=== PATIENT | female | born 1960 ===

== ENCOUNTER 2021-10-07 01:38 | Day surgery (SDC) | payer MEDICARE, BC ==
[2021-10-07 14:17] LABS: BASOPHILS ABSOLUTE AUTO 0.03 K/mm3 (0.00-0.23); BASOPHILS PERCENT AUTO 0 % (0-2); EOSINOPHILS ABSOLUTE AUTO 0.18 K/mm3 (0.00-0.68); EOSINOPHILS PERCENT AUTO 2 % (0-6); Hematocrit 36.4 % (33.0-51.0); Hemoglobin 12.3 g/dL (11.5-16.0); IMMATURE GRAN ABSOLUTE AUTO 0.03 K/mm3 (0.00-0.10); IMMATURE GRAN PERCENT AUTO 0 % (0-1); LYMPHOCYTES ABSOLUTE AUTO 1.72 K/mm3 (0.84-5.20); LYMPHOCYTES PERCENT AUTO 21 % (21-46); MONOCYTES ABSOLUTE AUTO 0.59 K/mm3 (0.16-1.47); MONOCYTES PERCENT AUTO 7 % (4-13); Mean Corpuscular HGB 32.4 pg (26.0-34.0); Mean Corpuscular HGB Conc 33.8 g/dL (31.5-36.5); Mean Corpuscular Volume 96 fL (80-100); Mean Platelet Volume 9.9 fL (9.1-12.4); NEUTROPHILS ABSOLUTE AUTO 5.67 K/mm3 (1.96-9.15); NEUTROPHILS PERCENT AUTO 69 % (41-73); Platelet Count 265 K/mm3 (150-400); RDW Standard Deviation 45.7 fL (35.1-46.3); White Blood Cell Count 8.22 K/mm3 (4.00-11.30)
[2021-10-07 14:33] LABS: Albumin, Blood 3.4 g/dL (3.4-5.0); Bilirubin, Total 0.3 mg/dL (0.1-1.0); Calcium, Blood 8.5 mg/dL (8.5-10.1); Creatinine, Blood 0.78 mg/dL (0.40-1.00); Globulin, Blood 3.5 g/dL (2.2-4.0); Potassium, Blood 3.7 mmol/L (3.5-5.5); Total Protein, Blood 6.9 g/dL (6.4-8.2)
[2021-10-07] MEDS ORDERED: ESTR2 PO (14:51)
[2021-10-07] MEDS ORDERED: ESZO3 PO (14:52)
[2021-10-07] MEDS ORDERED: HYDSUL200 PO (14:52)
[2021-10-07] MEDS ORDERED: LOSARTAN POTAS100 M1 PO (14:53)
[2021-10-07] MEDS ORDERED: LEVSOD75 PO (14:53)
[2021-10-07] MEDS ORDERED: Hair, Skin & N1 EACH PO ×2 (14:54→14:56)
[2021-10-07] MEDS ORDERED: TIZA4 PO (14:57)
[2021-10-07] MEDS ORDERED: TRAM50 PO (14:57)
[2021-10-07] MEDS ORDERED: VITAMIN D5000 UNIT PO (14:58)
== END 2021-10-07 16:50 | disposition home or self-care (01) ==
LOC: ATC 01:38
PROVIDERS: Internal Medicine Rheumatology
DX: M45.0 Ankylosing spondylitis of multiple sites in spine (principal); M35.09 Sjogren syndrome with other organ involvement; I73.00 Raynaud's syndrome without gangrene; Z79.899 Other long term (current) drug therapy; R21 Rash and other nonspecific skin eruption
CPT/HCPCS: 80053; 85025; 96413; 96415; J2920; J7050; Q5103

== ENCOUNTER 2021-10-20 00:36 | Day surgery (SDC) | payer MEDICARE, BC ==
[~2021-10-20] VITALS: Wt 74.6 kg
[~2021-10-20 00:36] MED LIST: ESTR2 PO; ESZO3 PO; HYDSUL200 PO; Hair, Skin & N1 EACH PO; LEVSOD75 PO; LOSARTAN POTAS100 M1 PO; TIZA4 PO; TRAM50 PO; VITAMIN D5000 UNIT PO
== END 2021-10-20 16:34 | disposition home or self-care (01) ==
LOC: ATC 00:36
DX: M45.0 Ankylosing spondylitis of multiple sites in spine (principal); I10 Essential (primary) hypertension; E03.9 Hypothyroidism, unspecified; M13.10 Monoarthritis, not elsewhere classified, unspecified site; M35.09 Sjogren syndrome with other organ involvement; I73.00 Raynaud's syndrome without gangrene; Z79.899 Other long term (current) drug therapy
CPT/HCPCS: 96375; 96413; 96415; J2920; J7050; Q5103

== ENCOUNTER 2021-11-17 01:20 | Day surgery (SDC) | payer MEDICARE, BC ==
[~2021-11-17] VITALS: Wt 74.7 kg
== END 2021-11-17 16:13 | disposition home or self-care (01) ==
LOC: ATC 01:20
DX: M45.0 Ankylosing spondylitis of multiple sites in spine (principal); I10 Essential (primary) hypertension; E03.9 Hypothyroidism, unspecified; M35.09 Sjogren syndrome with other organ involvement; Z79.899 Other long term (current) drug therapy
CPT/HCPCS: J7050; Q5103

== ENCOUNTER 2022-01-15 01:33 | Day surgery (SDC) | payer MEDICARE, BC ==
[~2022-01-15] VITALS: Wt 75.0 kg
[2022-01-15] MEDS ORDERED: FOLI1 PO (14:09)
--- NOTE | 2022-01-15 14:40 | NUR ---
Pt declines pre-meds. States she took a muscle relaxant medication prior to her arrival today. Her is here with her and is her [employer] today.
[2022-01-15 15:00] LABS: BASOPHILS ABSOLUTE AUTO 0.04 K/mm3 (0.00-0.23); BASOPHILS PERCENT AUTO 1 % (0-2); EOSINOPHILS ABSOLUTE AUTO 0.16 K/mm3 (0.00-0.68); EOSINOPHILS PERCENT AUTO 2 % (0-6); Hematocrit 37.7 % (33.0-51.0); Hemoglobin 12.8 g/dL (11.5-16.0); IMMATURE GRAN ABSOLUTE AUTO 0.02 K/mm3 (0.00-0.10); IMMATURE GRAN PERCENT AUTO 0 % (0-1); LYMPHOCYTES ABSOLUTE AUTO 1.99 K/mm3 (0.84-5.20); LYMPHOCYTES PERCENT AUTO 29 % (21-46); MONOCYTES PERCENT AUTO 9 % (4-13); Mean Corpuscular HGB 32.7 pg (26.0-34.0); Mean Corpuscular Volume 96 fL (80-100); Mean Platelet Volume 10.3 fL (9.1-12.4); NEUTROPHILS ABSOLUTE AUTO 4.17 K/mm3 (1.96-9.15); NEUTROPHILS PERCENT AUTO 60 % (41-73); Platelet Count 258 K/mm3 (150-400); RDW Coefficient Variation 12.5 % (11.7-14.2); Red Blood Cell Count 3.92 M/mm3 (3.80-5.20); White Blood Cell Count 6.98 K/mm3 (4.00-11.30)
[2022-01-15 15:28] LABS: Albumin, Blood 3.7 g/dL (3.4-5.0); Albumin/Globulin Ratio 1.2 (0.8-1.8); Bilirubin, Total 0.3 mg/dL (0.1-1.0); Bun/Creatinine Ratio 17.1 (12.0-20.0); Creatinine, Blood 0.82 mg/dL (0.40-1.00); Globulin, Blood 3.1 g/dL (2.2-4.0); Total Protein, Blood 6.8 g/dL (6.4-8.2)
== END 2022-01-15 16:45 | disposition home or self-care (01) ==
LOC: ATC 01:33
PROVIDERS: Internal Medicine Rheumatology
DX: M45.0 Ankylosing spondylitis of multiple sites in spine (principal); M35.00 Sjogren syndrome, unspecified; I10 Essential (primary) hypertension; E03.9 Hypothyroidism, unspecified; F32.9 Major depressive disorder, single episode, unspecified
CPT/HCPCS: 80053; 85025; 96413; 96415; J2920; J7050; Q5103

== ENCOUNTER 2022-02-26 00:07 | Day surgery (SDC) | payer MEDICARE, BC ==
[~2022-02-26 00:07] MED LIST changes: +FOLI1 PO
== END 2022-02-26 16:00 | disposition home or self-care (01) ==
LOC: ATC 00:07
DX: M45.0 Ankylosing spondylitis of multiple sites in spine (principal); M35.09 Sjogren syndrome with other organ involvement; I73.00 Raynaud's syndrome without gangrene; R21 Rash and other nonspecific skin eruption; R13.10 Dysphagia, unspecified; I10 Essential (primary) hypertension; E03.9 Hypothyroidism, unspecified
CPT/HCPCS: 96375; 96413; 96415; J2920; J7050; Q5103

== ENCOUNTER 2022-04-09 01:19 | Day surgery (SDC) | payer MEDICARE, BC | END 2022-04-09 17:10 | disposition home or self-care (01) | LOC: ATC 01:19 | DX: M45.0 Ankylosing spondylitis of multiple sites in spine (principal); M35.09 Sjogren syndrome with other organ involvement; I73.00 Raynaud's syndrome without gangrene; Z79.899 Other long term (current) drug therapy | CPT/HCPCS: 96413; 96415; J7050; Q5103 ==